=== PATIENT | male | born 1950 | race Caucasian/White ===

== ENCOUNTER 2017-05-31 12:37 | Emergency (ER) | payer MEDICARE, OTHER ==
--- NOTE | 2017-05-31 13:18 | EDM.PDOC ---
ED HPI GENERAL MEDICAL PROBLEM - General Stated Complaint: AMBULANCE Time Seen by Provider: 05/31/17 12:38 Source of Information: Reports: EMS History Limitations: Reports: No Limitations - History of Present Illness INITIAL COMMENTS - FREE TEXT/NARRATIVE: 67 yo male presents in active CPR per EMS. Per family, patient was found down in bed and blue. Immediately began CPR. states that pts face was blue. Family friend who is a medical professional states that he began CPR but was having a hard time ventilating patient. States that he noticed vomitus at pt's mouth. EMS was called who intubated patient. Blood noted from ET tube upon arrival. Per EMS, no shocks but 6 rounds of epinephrine given. CPR had beenin progress for over 1.5 hours upon arrival. Asystole on monitor upon arrival. Onset: Today Treatments NUT TAPPER: Reports: CPR, Intubation - Related Data Allergies Allergy/AdvReac Type Severity Reaction Status Date / Time verapamil Allergy UNKNOWN Unverified 05/31/17 13:21 ED ROS GENERAL - Review of Systems Review Of Systems: Unable To Obtain ED EXAM, CPR - Physical Exam Exam: See Below Limited By: Unresponsive Eye Exam: Bilateral Eye: Abnormal Pupil (fixed) Throat/Mouth: Other (Intubation with bright red blood in tubing and ambu) Respiratory Chest: Other (intubated) Cardiovascular: CPR In Progress GI/Abdominal Exam: Distended 0: Right Carotid, Left Carotid, Brachial Pulse (R), Brachial Pulse (L), Femoral (R), Femoral (L) Skin Exam: Ecchymosis (to head and neck) Course - Re-Assessments/Exams Free Text/Narrative Re-Assessment/Exam: 05/31/17 13:19 Spoke with who states that pt was released from [facility] last PM with dx of diverticulosis. States that pt took flagyl this morning and she went to take shower. Upon returning she found patient blue in the face and not breathing. Departure - Departure Time of Disposition: 12:38 Disposition: 20 Preliminary Cause of *Q: Cardiac Arrest Clinical Impression: Cardiac arrest - Discharge Information
== END 2017-05-31 18:25 | disposition expired ==
LOC: DL.ED 12:37
DX: I46.9 Cardiac arrest, cause unspecified (principal)
CPT/HCPCS: 99285